=== PATIENT | male | born 1985 | race Caucasian/White ===

== ENCOUNTER 2018-01-06 10:44 | Emergency (ER) | payer SELFPAY ==
[2018-01-06 10:44] VITALS: BP 113/64; PULSE 108; RESP 18; TEMP 36.6; O2SAT 100; BMI 22.2
--- NOTE | 2018-01-06 11:03 | ED.VISSUMM ---
- ER Visit Summary Date of Service: 01/06/18 Chief Complaint: Infection History of Present Illness: The patient is a 32 M with a chest wall infection that started several days ago. It has been red, swollen, and painful. He is concerned it might be an infected hair. No fever or systemic symptoms. Physical Examination: Vitals unremarkable. Afebrile. Alert and oriented. Right chest wall shows an abscess, 4 cm in diameter, fluctuant, pus noted. Just medial to the right nipple. Nipple uninvolved. Otherwise exam unremarkable. Test Results: None indicated Emergency Department Course and Treatment: Consent obtained. Risks discussed. Wound was anesthetized with lidocaine. Single linear incision measuring about two thirds of the abscess was made. Copious pus expressed. Loculations broken. Wound was explored and no deep structures involved. Packing was applied. Patient will follow up in about 48 hours to have this removed. He was given wound care instructions. Started on Bactrim and Keflex. Treatment Plan: As above Disposition: Discharged Impression: 1. Right chest wall abscess, acute, initial encounter This note was generated with [employer] dictation software. It may contain incorrect words, spelling, and punctuation that were not noted in review of the chart prior to signing ED Disposition - Plan for ED Patient: Chief Complaint: Wound Instructions: Abscess Drainage Prescriptions: Cephalexin [Keflex] 500 mg PO Q6 #28 cap Naproxen [Naprosyn] 500 mg PO BID #14 tab Smz/Tmp Ds [Bactrim Ds] 1 tab PO BID #14 tab Referrals: Virgil,Dana, [NON-STAFF] -
[2018-01-06] MEDS: Cephalexin 250 MG Capsule 500 MG PO (11:28)
[2018-01-06] MEDS: Smz/Tmp Ds Tablet 1 TABLET PO (11:28)
--- NOTE | 2018-01-06 11:53 | ED.DEP ---
ED Disposition - Plan for ED Patient: Chief Complaint: Wound Instructions: Abscess Drainage Prescriptions: Cephalexin [Keflex] 500 mg PO Q6 #28 cap Naproxen [Naprosyn] 500 mg PO BID #14 tab Smz/Tmp Ds [Bactrim Ds] 1 tab PO BID #14 tab Referrals: Virgil,DO Dana [NON-STAFF] -
[2018-01-06] MEDS: HYDROcodone Bitartrate/Apap 5/325 Tablet PO (12:35)
[2018-01-06 12:36] VITALS: BP 121/79; PULSE 82; RESP 14; O2SAT 98
== END 2018-01-06 12:40 | disposition home or self-care (01) ==
PROVIDERS: Emergency Provider Emergency Medicine
DX: L02.213 Cutaneous abscess of chest wall (principal); I25.2 Old myocardial infarction; Z72.0 Tobacco use
CPT/HCPCS: 10060; 99283

== ENCOUNTER 2023-09-19 03:00 | Emergency (ER) | payer SELFPAY ==
[2023-09-19 03:00] VITALS: BP 141/88; PULSE 111; RESP 18; TEMP 36.2; O2SAT 97; BMI 25.2
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
--- NOTE | 2023-09-19 04:31 | ED.RN ---
Patient's girlfriend comes to nurse's station and reports that he wants to leave AMA. This nurse to room and asks if he would like the lab work completed and pain and nausea medication that is ordered, and he declines. He states I hate needles and I just wanted to know if it was broken, and she said it probably wasn't broken, so I'm leaving . Ambulates out of department independently without difficulty.
== END 2023-09-19 04:37 | disposition left against medical advice (07) ==
PROVIDERS: Emergency Provider Emergency Medicine; Visit Provider Emergency Medicine
DX: M79.651 Pain in right thigh (principal); F17.210 Nicotine dependence, cigarettes, uncomplicated; R11.10 Vomiting, unspecified; R51.9 Headache, unspecified; M79.89 Other specified soft tissue disorders; R20.2 Paresthesia of skin
CPT/HCPCS: 99282; J7040; A4216; J2405